=== PATIENT | male | born 1970 | race Caucasian/White ===

== ENCOUNTER 2017-09-26 12:10 | Emergency (ER) | payer BC, OTHER ==
[~2017-09-26] VITALS: Ht 172.7 cm; Wt 81.6 kg
[~2017-09-26 12:10] MED LIST: HYDR-4683; LOPRESSOR; SOMA
[2017-09-26 12:38] VITALS: BP 136/87
[2017-09-26 13:09] LABS: Basophils # (auto) 0 uL; Basophils % (auto) 0.4 % (0.0-2.0); Eosinophils # (auto) 0.1 uL; Eosinophils % (auto) 0.8 % (0.0-7.0); Hematocrit 47.2 % (41.0-53.0); Hemoglobin 16.3 g/dL (13.5-17.5); Lymphocytes # (auto) 2.4 uL; Lymphocytes % (auto) 27.1 % (10.0-50.0); Mean Corpuscular Hemoglobin 32.2 pg (28.0-32.0); Mean Corpuscular Hgb Conc. 34.6 g/dL (32.0-36.0); Mean Corpuscular Volume 93.2 fL (80.0-100.0); Monocytes # (auto) 0.5 uL; Monocytes % (auto) 6.1 % (0.0-12.0); Neutrophils # (auto) 5.8 uL; Neutrophils % (auto) 65.6 % (37.0-80.0); Nucleated Red Blood Cells % 0.1 %; Platelet Count (auto) 259 10^3/uL (140-450); Red Blood Cells 5.07 10^6/uL (4.5-5.90); White Blood Cell 8.9 10^3/uL (4.4-10.8)
[2017-09-26 13:44] LABS: Albumin 4.7 g/dL (3.4-5.0); Alkaline Phosphatase 104 U/L (45-117); Anion Gap 6 (5-15); Aspartate Aminotransferase 17 U/L (15-37); BUN/Creatinine Ratio 10.8; Bilirubin, Total 0.4 mg/dL (0.2-1.0); Blood Urea Nitrogen 14 mg/dL (7-18); Calcium 8.5 mg/dL (8.5-10.1); Carbon Dioxide 28 mmol/L (21-32); Chloride 105 mmol/L (98-107); GFR African American 76 mL/min; GFR Non-African American 63 mL/min; Glucose 102 mg/dL (74-106); Potassium 4.6 mmol/L (3.5-5.1); Sodium 139 mmol/L (136-145); Total Protein 8.1 g/dL (6.4-8.2)
[2017-09-26 13:53] LABS: Alanine Aminotransferase 48 U/L (16-61)
[2017-09-26] MEDS ORDERED: IODIXANOL 320MG/ML 100ML BTL IV ONE (14:10)
[2017-09-26] MEDS ORDERED: LIDOCAINE HCL 2 %PF INJ 10ML AMP IJ ONE ×2 (14:10→15:12)
[2017-09-26] MEDS ORDERED: fentaNYL CITRATE 100 MCG/2 ML VL ONE (14:26)
[2017-09-26] MEDS ORDERED: ANGIOMAX 250 MG VIAL IV ONE (14:26)
[2017-09-26] MEDS ORDERED: MIDAZOLAM HCL 1MG/1ML-2 ML VIAL ONE (14:26)
[2017-09-26] MEDS ORDERED: SODIUM CHL 0.9% 0 ML ONE (14:27)
[2017-09-26] MEDS ORDERED: EPTIFIBATIDE DRIP(0.75MG/ML) 100 ML IV ONE (15:06)
[2017-09-26] MEDS ORDERED: VERAPAMIL 2.5MG/ML INJ 2ML VIAL IV ONE (15:06)
[2017-09-26] MEDS ORDERED: LOSA50TA6 PO (16:33)
[2017-09-26] MEDS ORDERED: BUPR300T28 PO (16:33)
[2017-09-26] MEDS ORDERED: GABA300C10 PO (16:33)
[2017-09-26] MEDS ORDERED: TRAM50TA2 PO (16:33)
== END 2017-09-26 14:28 | disposition home or self-care (01) ==
LOC: ER 12:10
DX: R07.9 Chest pain, unspecified (principal); R06.02 Shortness of breath; I10 Essential (primary) hypertension; M54.2 Cervicalgia; G89.29 Other chronic pain; Z79.899 Other long term (current) drug therapy; Z87.891 Personal history of nicotine dependence
CPT/HCPCS: 36415; 71046; 80053; 84484; 85025; 93005; 96365; 99285; C1760; C1769; C1887; C1894; J1327; J1644; J2250; J3010; J7030; Q9967; 99152

== ENCOUNTER → 2017-11-12 | Outpatient (CLI) | payer BC ==
[~2017-11-12] MED LIST changes: +BUPR300T28 PO; +GABA300C10 PO; -HYDR-4683; -LOPRESSOR; +LOSA50TA6 PO; -SOMA; +TRAM50TA2 PO
== END | disposition home or self-care (01) ==
LOC: LAB 13:07
PROVIDERS: ATTEND Preventive Medicine Preventive Medicine/Occupational Environmental Medicine
DX: Z02.1 Encounter for pre-employment examination (principal); I10 Essential (primary) hypertension; Z87.891 Personal history of nicotine dependence; Z79.899 Other long term (current) drug therapy
CPT/HCPCS: 36415; 86431; 86706; 86735; 86762; 86765; 86787